=== PATIENT | male | born 1985 | race Caucasian/White ===

== ENCOUNTER 2017-01-29 18:47 | Emergency (ER) | payer SELFPAY ==
[~2017-01-29] VITALS: Ht 172.7 cm; Wt 65.0 kg
[2017-01-29] MEDS ORDERED: SODIUM CHLORIDE 0.9% 1,000 ML IV ONE (21:57)
[2017-01-29] MEDS ORDERED: OLANZAPINE 10 MG/VIAL IM ONE (22:00)
[2017-01-29] MEDS ORDERED: LORAZEPAM 2MG/ML CPJ IM ONE (22:00)
[2017-01-29 22:39] LABS: EOSINOPHILS % 9.2 % (0.0-5.0); HEMATOCRIT. 41.5 % (42.0-52.0); MEAN CORPUSCULAR HEMOGLOBIN 31.4 pg (28.0-32.0); MEAN CORPUSCULAR VOLUME 93.2 fL (80.0-94.0); MEAN PLATELET VOLUME 7.9 fl (7.4-10.4); MONOCYTES % 7.7 % (2.0-8.0); NEUTROPHILS % 45.1 % (40.0-76.0); PLATELET 225 x1000/uL (130-400); RED BLOOD CELL COUNT 4.45 mill/uL (4.7-6.1); RED CELL DISTRIBUTION WIDTH 13.4 % (11.6-14.6)
[2017-01-29 22:45] LABS: CHLORIDE 108 mEq/L (98-107)
[2017-01-29 22:51] LABS: CARBON DIOXIDE 26 mEq/L (21-32); ETHANOL BLOOD 224 mg/dL
[2017-01-29 23:28] LABS: *AMPHETAMINES SCREEN URINE PRESUMTIVE POSITIVE (NEGATIVE); *BARBITURATES SCREEN URINE NEGATIVE (NEGATIVE); *BENZODIAZEPINES SCREEN URINE NEGATIVE (NEGATIVE); *COCAINE SCREEN URINE NEGATIVE (NEGATIVE); CANNABINOID URINE SCREEN PRESUMTIVE POSITIVE (NEGATIVE); METHADONE URINE SCREEN NEGATIVE (NEGATIVE); OPIATES URINE SCREEN NEGATIVE (NEGATIVE); PHENCYCLIDINE URINE SCREEN NEGATIVE (NEGATIVE)
[2017-01-30 05:46] VITALS: BP 109/74
== END 2017-01-30 07:12 | disposition home or self-care (01) ==
LOC: ER 18:51
DX: G92 Toxic encephalopathy (principal); T51.0X1A Toxic effect of ethanol, accidental (unintentional), initial encounter; T43.621A Poisoning by amphetamines, accidental (unintentional), initial encounter; F12.129 Cannabis abuse with intoxication, unspecified
CPT/HCPCS: 36415; 80048; 80305; 80307; 80329; 85025; 96360; 96361; 96372; 99285; G0482; J2060; J3490; J7030; Z7610